=== PATIENT | male | born 1960 | race Caucasian/White ===

== ENCOUNTER 2024-12-31 12:01 | Inpatient (IN) | payer MEDICARE, MEDICAID ==
[~2024-12-31] VITALS: Ht 165.1 cm; Wt 65.3 kg
[2024-12-31] MEDS: SODIUM CHLORIDE 0.9% (SEPSIS BOLUS) IV ONE (12:22)
[2024-12-31] MEDS: PIPERACILLIN/TAZO 3.375G/50ML 50 ML IV ONE (12:28)
[2024-12-31] MEDS: VANCOMYCIN 1G PREMIX 200 ML IV ONE (12:32)
[2024-12-31 12:40] LABS: HEMATOCRIT. 26.8 % (42.0-52.0); HEMOGLOBIN. 8.5 g/dL (14.0-18.0); MEAN CORPUSCULAR HEMOGLOBIN 30.6 pg (28.0-32.0); MEAN CORPUSCULAR HGB CONC 31.9 g/dL (31.0-37.0); PLATELET 186 x1000/uL (130-400); RED BLOOD CELL COUNT 2.79 mill/uL (4.7-6.1); RED CELL DISTRIBUTION WIDTH 16.6 % (11.6-14.6); WHITE BLOOD COUNT 16.8 x1000/uL (4.5-11.0)
[2024-12-31 12:41] LABS: DIFFERENTIAL COMMENT 1
[2024-12-31 12:43] LABS: INR 1.4; PROTHROMBIN TIME 15.1 sec (9.6-11.0)
[2024-12-31 12:48] LABS: CHLORIDE 113 mEq/L (98-107); POTASSIUM 3.9 mEq/L (3.5-5.1); SODIUM 137 mEq/L (136-145)
[2024-12-31 12:49] LABS: CALCIUM 8.3 mg/dL (8.7-10.4); CARBON DIOXIDE 12 mEq/L (21-32)
[2024-12-31 12:54] LABS: CREATININE 2.4 mg/dL (0.6-1.3); GLUCOSE 65 mg/dL (70-105); TROPONIN I HIGH SENSITIVITY 16 ng/L (3.0-53); UREA NITROGEN BLOOD 44 mg/dL (9-23)
[2024-12-31 12:56] LABS: ALANINE AMINOTRANSFERASE 23 IU/L (10-49); ALBUMIN 3.2 g/dL (3.2-4.8); ASPARTATE AMINOTRANSFERASE 21 IU/L (<34); BILIRUBIN DIRECT 0.2 mg/dL (<=3.0); BILIRUBIN TOTAL 0.3 mg/dL (0.1-1.0)
[2024-12-31 12:57] LABS: PROTEIN TOTAL 6.2 g/dL (6.0-8.3)
[2024-12-31] MEDS ORDERED: NOREPINEPHRINE 8MG/250ML PMX 250 ML IV STA (13:32)
[2024-12-31 13:46] LABS: ANISOCYTOSIS 1+; PLATELET ESTIMATE NORMAL
[2024-12-31 13:48] LABS: TOXIC VACUOLATION FEW
[2024-12-31] MEDS: NOREPINEPHRINE 8MG/250ML PMX 250 ML IV NR (14:03)
[2024-12-31] MEDS: MIDODRINE HCL 5MG TABLET PO NR (17:30)
[2024-12-31] MEDS ORDERED: ACETAMINOPHEN 325MG TABLET PO PRN (17:30)
[2024-12-31] MEDS ORDERED: DEXT 5%/0.2% NACL 1,000 ML IV SCH (17:30)
[2024-12-31] MEDS ORDERED: ONDANSETRON HCL 4MG/2ML INJ IV PRN (17:30)
[2024-12-31] MEDS ORDERED: SODIUM BICARBONATE IV SCH (18:00)
[2024-12-31] MEDS ORDERED: NACL IV SCH (18:00)
[2024-12-31] MEDS ORDERED: DEXT IV SCH (18:00)
[2024-12-31] MEDS: SODIUM BICARBONATE 150 MEQ in DEXT 5%/0.45% NACL 1000ML 850 ML IV SCH (20:00)
[2024-12-31] MEDS: BLOOD SUGAR DIAGNOSTIC STRIP TEST SCH (22:43)
[2024-12-31] MEDS: PIPERACILLIN/TAZO 3.375G/50ML 50 ML IV SCH (23:05)
[2025-01-01] MEDS: MIDODRINE HCL 5MG TABLET PO SCH (09:41)
[2025-01-01 10:52] VITALS: BP 124/57; PULSE 67; RESP 18; TEMP 36.4; O2SAT 100
[2025-01-01] MEDS ORDERED: TAMS-11 PO (10:56)
[2025-01-01] MEDS ORDERED: TACR1CAP2 MT (10:56)
[2025-01-01] MEDS ORDERED: NIFE-32 PO (11:03)
[2025-01-01] MEDS ORDERED: FINA5TAB11 PO (11:03)
[2025-01-01] MEDS ORDERED: CLON0.2T PO (11:03)
[2025-01-01] MEDS ORDERED: SODI325T PO (11:03)
[2025-01-01] MEDS ORDERED: LOSA100T33 PO (11:03)
[2025-01-01] MEDS ORDERED: MULT-1279 PO (11:03)
[2025-01-01] MEDS ORDERED: CARV6.2548 PO (11:03)
[2025-01-01 11:04] VITALS: BP 124/57; PULSE 67; RESP 18; TEMP 36.4
[2025-01-01] MEDS ORDERED: VANCOMYCIN 1G PREMIX 200 ML IV SCH (12:00)
[2025-01-01] MEDS ORDERED: DEXTROSE 50% WATER 50ML SYRINGE IV PRN (12:30)
[2025-01-01] MEDS ORDERED: FINASTERIDE 5MG TABLET PO SCH (12:30)
[2025-01-01] MEDS: FINASTERIDE 5MG TABLET PO SCH (13:40)
[2025-01-01] MEDS: TACROLIMUS 1MG CAPSULE PO SCH (13:40)
[2025-01-01] MEDS: INSULIN LISPRO 100 UNITS/ML SUBCUT SCH (13:42)
[2025-01-01 15:56] LABS: HEMATOCRIT. 32.8 % (42.0-52.0); HEMOGLOBIN. 10.4 g/dL (14.0-18.0); MEAN CORPUSCULAR HEMOGLOBIN 29.4 pg (28.0-32.0); MEAN CORPUSCULAR HGB CONC 31.6 g/dL (31.0-37.0); MEAN CORPUSCULAR VOLUME 93.2 fL (80.0-94.0); MEAN PLATELET VOLUME 10.3 fl (7.4-10.4); PLATELET 187 x1000/uL (130-400); RED BLOOD CELL COUNT 3.52 mill/uL (4.7-6.1); RED CELL DISTRIBUTION WIDTH 17.1 % (11.6-14.6)
[2025-01-01 16:00] VITALS: BP 143/74; PULSE 83; RESP 19; TEMP 36.6; O2SAT 100
[2025-01-01 16:03] LABS: DIFFERENTIAL COMMENT 1
[2025-01-01 16:04] LABS: POTASSIUM 3.7 mEq/L (3.5-5.1)
[2025-01-01 16:06] LABS: CALCIUM 8.3 mg/dL (8.7-10.4)
[2025-01-01 16:13] LABS: CLARITY URINE CLEAR (CLEAR); COLOR URINE YELLOW (YELLOW); GLUCOSE URINE 2+ (NEGATIVE); KETONES URINE NEGATIVE (NEGATIVE); LEUKOCYTE ESTERASE URINE 1+ (NEGATIVE); NITRITE URINE NEGATIVE (NEGATIVE); OCCULT BLOOD URINE 2+ (NEGATIVE); PH URINE 5.5 (4.5-8.0); PROTEIN URINE 1+ (NEGATIVE); SPECIFIC GRAVITY URINE 1.009 (1.005-1.030); UROBILINOGEN URINE 0.2 E.U./dL (0.2-1.0)
[2025-01-01 16:25] LABS: BACTERIA URINE 1+; SQUAMOUS EPITHELIAL CELL URINE 1+ /lpf (RARE/1+); YEAST URINE NONE SEEN
[2025-01-01 16:38] LABS: ANISOCYTOSIS 1+; PLATELET ESTIMATE NORMAL
[2025-01-01] MEDS: VANCOMYCIN 750MG/150ML (BAXTER) IV NR (17:15)
[2025-01-01 20:00] VITALS: BP 143/74; PULSE 87; RESP 18; TEMP 36.7; O2SAT 99
[2025-01-01] MEDS: TAMSULOSIN HCL 0.4MG SR CAPSULE PO SCH (22:32)
[2025-01-01] MEDS: CLONIDINE 0.2MG TABLET PO SCH (22:33)
[2025-01-01] MEDS: CARVEDILOL 6.25 MG TABLET PO SCH (22:34)
[2025-01-02] VITALS: BP 138/70; PULSE 74; RESP 18; TEMP 36.5; O2SAT 98
[2025-01-02 04:00] VITALS: BP 134/70; PULSE 70; RESP 19; TEMP 36.6; O2SAT 98
[2025-01-02 07:48] LABS: POTASSIUM 3.7 mEq/L (3.5-5.1)
[2025-01-02 07:49] LABS: CALCIUM 7.9 mg/dL (8.7-10.4)
[2025-01-02 07:54] LABS: CREATININE 1.8 mg/dL (0.6-1.3)
[2025-01-02 07:58] LABS: HEMATOCRIT. 30.1 % (42.0-52.0); HEMOGLOBIN. 9.7 g/dL (14.0-18.0); MEAN CORPUSCULAR HEMOGLOBIN 29.7 pg (28.0-32.0); MEAN CORPUSCULAR HGB CONC 32.1 g/dL (31.0-37.0); MEAN CORPUSCULAR VOLUME 92.4 fL (80.0-94.0); MEAN PLATELET VOLUME 10.9 fl (7.4-10.4); PLATELET 158 x1000/uL (130-400); RED BLOOD CELL COUNT 3.26 mill/uL (4.7-6.1); RED CELL DISTRIBUTION WIDTH 16.5 % (11.6-14.6); WHITE BLOOD COUNT 15.5 x1000/uL (4.5-11.0)
[2025-01-02 08:00] VITALS: BP 169/80; PULSE 76; RESP 18; TEMP 36.6; O2SAT 98
[2025-01-02] MEDS: NIFEDIPINE XL 60MG TAB PO SCH (08:42)
[2025-01-02] MEDS: LOSARTAN 100 MG TABLET PO SCH (08:42)
[2025-01-02 08:44] LABS: DIFFERENTIAL COMMENT 1
[2025-01-02 12:00] VITALS: BP 125/62; PULSE 70; RESP 18; TEMP 36.7; O2SAT 96
[2025-01-02] MEDS: CEFTRIAXONE 2GM/50ML 50 ML IV SCH (12:05)
[2025-01-02 16:00] VITALS: BP 114/60; PULSE 73; RESP 18; TEMP 36.4; O2SAT 95
[2025-01-02 20:00] VITALS: BP 116/65; PULSE 80; RESP 20; TEMP 36.9; O2SAT 99
[2025-01-03] VITALS: BP 129/71; PULSE 78; RESP 20; TEMP 36.6; O2SAT 99
[2025-01-03 04:00] VITALS: BP 106/57; PULSE 68; RESP 18; TEMP 36.3; O2SAT 98
[2025-01-03 08:00] VITALS: BP 114/60; PULSE 80; RESP 18; TEMP 37; O2SAT 96
[2025-01-03 08:42] LABS: CALCIUM 7.7 mg/dL (8.7-10.4)
[2025-01-03 08:47] LABS: CREATININE 1.8 mg/dL (0.6-1.3)
[2025-01-03 09:13] LABS: HEMATOCRIT. 28.5 % (42.0-52.0); MEAN CORPUSCULAR HEMOGLOBIN 29.4 pg (28.0-32.0); MEAN CORPUSCULAR HGB CONC 31.7 g/dL (31.0-37.0); MEAN CORPUSCULAR VOLUME 92.8 fL (80.0-94.0); MEAN PLATELET VOLUME 10.7 fl (7.4-10.4); PLATELET 155 x1000/uL (130-400); RED BLOOD CELL COUNT 3.07 mill/uL (4.7-6.1); RED CELL DISTRIBUTION WIDTH 16.5 % (11.6-14.6); WHITE BLOOD COUNT 6.2 x1000/uL (4.5-11.0)
[2025-01-03 10:00] LABS: DIFFERENTIAL COMMENT 1
[2025-01-03 12:00] VITALS: BP 117/61; PULSE 86; RESP 18; TEMP 36.7; O2SAT 98
[2025-01-03] MEDS ORDERED: LEVO750T68 MT (13:11)
[2025-01-03 13:34] VITALS: BP 117/61; PULSE 86; TEMP 98; O2SAT 99
[2025-01-03 16:00] VITALS: BP 117/61; PULSE 77; RESP 19; TEMP 36.5; O2SAT 98
[2025-01-03 17:19] LABS: PLATELET ESTIMATE NORMAL
[2025-01-03 18:49] LABS: PLATELET ESTIMATE NORMAL
== END 2025-01-03 16:25 | disposition home or self-care (01) | DRG 871 ==
LOC: EDBD 12:01 → ER 12:01 → 6WST 14:25 → EDBEDREQSVC 01-01 10:11
PROVIDERS: ADMIT Internal Medicine; ATTEND Internal Medicine
PROC: 06HY33Z Insertion of Infusion Device into Lower Vein, Percutaneous Approach (ICD-10-PCS; principal; 2024-12-31)
PROC: B54BZZA Ultrasonography of Right Lower Extremity Veins, Guidance (ICD-10-PCS; 2024-12-31)
DX: A41.51 Sepsis due to Escherichia coli [E. coli] (principal); R65.21 Severe sepsis with septic shock; Z94.0 Kidney transplant status; N39.0 Urinary tract infection, site not specified; N17.9 Acute kidney failure, unspecified; D64.9 Anemia, unspecified; N40.0 Benign prostatic hyperplasia without lower urinary tract symptoms; N18.9 Chronic kidney disease, unspecified; I12.9 Hypertensive chronic kidney disease with stage 1 through stage 4 chronic kidney disease, or unspecified chronic kidney disease; E11.22 Type 2 diabetes mellitus with diabetic chronic kidney disease; Z79.899 Other long term (current) drug therapy
CPT/HCPCS: 36415; 36556; 71045; 80048; 80076; 80202; 81003; 82962; 83036; 83605; 84145; 84484; 85025; 87077; 87186; 93005; 99291; A4606; J0696; J1815; J2543; J3370; J3490; J7030; J7507

== ENCOUNTER 2025-09-10 08:56 | Inpatient (IN) | payer MEDICARE, MEDICAID ==
[~2025-09-10] VITALS: Ht 157.5 cm; Wt 59.4 kg
[~2025-09-10 08:56] MED LIST: CARV6.2548 PO; CLON0.2T PO; FINA5TAB11 PO; LEVO750T68 MT; LOSA100T33 PO; MULT-1279 PO; NIFE-32 PO; SODI325T PO; TACR1CAP2 MT; TAMS-54 PO
[2025-09-10 09:10] VITALS: O2SAT 99
[2025-09-10] MEDS: ONDANSETRON 4MG ODT PO ONE (10:01)
[2025-09-10] MEDS: ACETAMINOPHEN 325MG TABLET PO ONE (10:01)
[2025-09-10] MEDS: LACTATED RINGERS 1,000 ML IV SCH (10:01)
[2025-09-10 10:20] LABS: HEMATOCRIT. 32.4 % (42.0-52.0); HEMOGLOBIN. 10.2 g/dL (14.0-18.0); MEAN PLATELET VOLUME 9.4 fl (7.4-10.4); PLATELET 252 x1000/uL (130-400); RED BLOOD CELL COUNT 3.48 mill/uL (4.7-6.1); RED CELL DISTRIBUTION WIDTH 17.1 % (11.6-14.6)
[2025-09-10 10:50] LABS: TROPONIN I HIGH SENSITIVITY 30 ng/L (3.0-53)
[2025-09-10 10:51] LABS: UREA NITROGEN BLOOD 32 mg/dL (9-23)
[2025-09-10 10:53] LABS: ASPARTATE AMINOTRANSFERASE 14 IU/L (<34); BILIRUBIN DIRECT 0.1 mg/dL (<=3.0); BILIRUBIN TOTAL 0.3 mg/dL (0.1-1.0); PROTEIN TOTAL 7.2 g/dL (6.0-8.3)
[2025-09-10 10:57] LABS: CREATININE 3.0 mg/dL (0.6-1.3)
[2025-09-10 11:26] LABS: BAND% 2.0 % (1.0-6.0); LYMPHOCYTES % MANUAL 2.0 % (20.0-50.0); MONOCYTES % MANUAL 5.0 % (2.0-8.0); NEUTROPHILS % MANUAL 91.0 % (45.0-75.0); NUCLEATED RED BLOOD CELLS 1 /100 WBC; PLATELET ESTIMATE NORMAL
[2025-09-10] MEDS ORDERED: ACETAMINOPHEN 325MG TABLET PO PRN (12:45)
[2025-09-10] MEDS ORDERED: DOCUSATE SODIUM 100MG CAPSULE PO PRN (12:45)
[2025-09-10] MEDS ORDERED: CLONIDINE 0.1MG TABLET PO PRN (12:45)
[2025-09-10] MEDS ORDERED: GUAIFENESIN 200MG/10ML SUGAR FREE UDC PO PRN (12:45)
[2025-09-10] MEDS ORDERED: ONDANSETRON HCL 4MG/2ML INJ IV PRN (12:45)
[2025-09-10] MEDS ORDERED: IPRATROPIUM/ALBUTEROL 0.5-3(2.5)MG/3ML NEB HHN PRN (12:45)
[2025-09-10] MEDS: INSULIN LISPRO 100 UNITS/ML SUBCUT SCH (12:50)
[2025-09-10] MEDS ORDERED: FINASTERIDE 5MG TABLET PO SCH (13:00)
[2025-09-10] MEDS ORDERED: IOHEXOL-300 100 ML BOTTLE ONE (13:26)
[2025-09-10 13:36] LABS: PHOSPHORUS 3.9 mg/dL (2.5-4.9)
[2025-09-10] MEDS: DEXTROSE 50% WATER 50ML SYRINGE IV PRN (13:36)
[2025-09-10 16:00] VITALS: BP 112/68; PULSE 102; RESP 17; TEMP 36.7; O2SAT 97
[2025-09-10] MEDS: SODIUM BICARBONATE 650MG TABLET PO SCH (17:00)
[2025-09-10] MEDS: MAGNESIUM 4 G PREMIX 100 ML IV SCH (17:30)
[2025-09-10] MEDS: TACROLIMUS 1MG CAPSULE PO SCH (17:31)
[2025-09-10] MEDS: ENOXAPARIN 30MG/0.3ML SYR SUBCUT SCH (17:31)
[2025-09-10] MEDS: FAMOTIDINE 20MG/2ML VIAL IV SCH (17:32)
[2025-09-10] MEDS: SODIUM CHLORIDE 0.45% 1,000 ML IV SCH (17:40)
[2025-09-10] MEDS: BLOOD SUGAR DIAGNOSTIC STRIP TEST SCH (17:43)
[2025-09-10 18:09] VITALS: BP 112/68; PULSE 102; RESP 18; TEMP 36.696
[2025-09-10] MEDS ORDERED: FURO20TA4 PO (18:27)
[2025-09-10] MEDS ORDERED: MYCO180T3 MT (18:28)
[2025-09-10] MEDS ORDERED: TAMS-54 PO (18:29)
[2025-09-10 18:31] LABS: CLARITY URINE CLEAR (CLEAR); COLOR URINE YELLOW (YELLOW); GLUCOSE URINE NEGATIVE (NEGATIVE); KETONES URINE NEGATIVE (NEGATIVE); LEUKOCYTE ESTERASE URINE NEGATIVE (NEGATIVE); NITRITE URINE NEGATIVE (NEGATIVE); OCCULT BLOOD URINE TRACE (NEGATIVE); PH URINE 5.0 (4.5-8.0); PROTEIN URINE 1+ (NEGATIVE); SPECIFIC GRAVITY URINE 1.017 (1.005-1.030); UROBILINOGEN URINE 0.2 E.U./dL (0.2-1.0)
[2025-09-10] MEDS ORDERED: CLON1PAT12 TD (18:32)
[2025-09-10] MEDS ORDERED: SODI650T MT (18:32)
[2025-09-10] MEDS ORDERED: DOLU1TAB2 PO (18:33)
[2025-09-10] MEDS ORDERED: LOSA50TA41 PO (18:34)
[2025-09-10] MEDS ORDERED: NIFE20CA8 PO (18:35)
[2025-09-10] MEDS ORDERED: TACR30OI5 TP (18:36)
[2025-09-10 18:50] LABS: *AMPHETAMINES SCREEN URINE NEGATIVE (NEGATIVE); *BARBITURATES SCREEN URINE NEGATIVE (NEGATIVE); *BENZODIAZEPINES SCREEN URINE NEGATIVE (NEGATIVE); *COCAINE SCREEN URINE NEGATIVE (NEGATIVE); CANNABINOID URINE SCREEN NEGATIVE (NEGATIVE); METHADONE URINE SCREEN NEGATIVE (NEGATIVE); OPIATES URINE SCREEN NEGATIVE (NEGATIVE); PHENCYCLIDINE URINE SCREEN NEGATIVE (NEGATIVE)
[2025-09-10 18:51] LABS: BACTERIA URINE TRACE; ECSTASY MDMA SCREEN URINE NEGATIVE (NEGATIVE); RBC URINE NONE SEEN /hpf (0-2); SQUAMOUS EPITHELIAL CELL URINE RARE /lpf (RARE/1+); WBC URINE 0-2 /hpf (0-2)
[2025-09-10] MEDS: INFLUENZA VACCINE 05/PF 0.5 ML SYRINGE IM ONE (19:30)
[2025-09-10 20:00] VITALS: BP 134/73; PULSE 67; RESP 18; TEMP 36.7; O2SAT 100
[2025-09-10] MEDS: TAMSULOSIN HCL 0.4MG SR CAPSULE PO SCH (21:41)
[2025-09-10] MEDS: ACETAMINOPHEN 325MG TABLET PO PRN (23:24)
[2025-09-11] VITALS: BP 158/88; PULSE 103; RESP 18; TEMP 36.7; O2SAT 99
[2025-09-11 07:59] LABS: BASOPHILS % 0.2 % (0.0-2.0); EOSINOPHILS % 0.4 % (0.0-5.0); HEMATOCRIT. 30.4 % (42.0-52.0); HEMOGLOBIN. 9.6 g/dL (14.0-18.0); LYMPHOCYTES % 9.8 % (20.0-50.0); MEAN PLATELET VOLUME 10.0 fl (7.4-10.4); MONOCYTES % 8.2 % (2.0-8.0); NEUTROPHILS % 81.4 % (40.0-76.0); PLATELET 202 x1000/uL (130-400); RED BLOOD CELL COUNT 3.31 mill/uL (4.7-6.1); RED CELL DISTRIBUTION WIDTH 16.4 % (11.6-14.6)
[2025-09-11 08:00] VITALS: BP 173/92; PULSE 100; RESP 20; TEMP 36.6; O2SAT 99
[2025-09-11 08:20] LABS: CREATININE 2.7 mg/dL (0.6-1.3)
[2025-09-11 08:21] LABS: LDL CHOLESTEROL 33 mg/dL (5-100); TRIGLYCERIDE 103 mg/dL (0-150); UREA NITROGEN BLOOD 32 mg/dL (9-23)
[2025-09-11 08:22] LABS: ASPARTATE AMINOTRANSFERASE 13 IU/L (<34)
[2025-09-11 08:23] LABS: BILIRUBIN DIRECT 0.1 mg/dL (<=3.0); BILIRUBIN TOTAL 0.2 mg/dL (0.1-1.0); PHOSPHORUS 3.4 mg/dL (2.5-4.9); PROTEIN TOTAL 6.7 g/dL (6.0-8.3)
[2025-09-11 08:24] LABS: T4 FREE 0.80 ng/dL (0.89-1.76)
[2025-09-11] MEDS: SODIUM BICARBONATE 8.4% 50MEQ/50ML SYR IV NR (09:15)
[2025-09-11] MEDS: FINASTERIDE 5MG TABLET PO SCH (09:32)
[2025-09-11] MEDS: NIFEDIPINE XL 30MG TAB PO SCH (09:32)
[2025-09-11 11:58] LABS: BG BASE EXCESS -12.7 mmol/L (-2.0-3.0); BG CARBOXYHEMOGLOBIN 0.1 % (0.5-1.5); BG DEOXYHEMOGLOBIN 1.8 % (0.0-5.0); BG FRACTION INSPIRED OXYGEN 21; BG HCO3 ACT 11.9 mmol/L (21.0-28.0); BG METHEMOGLOBIN 0.3 % (0.5-1.5); BG OXYGEN SATURATION 98.2 % (94.0-98.0); BG OXYHEMOGLOBIN 97.8 % (94.0-98.0); BG PCO2 23.7 mmHg (35.0-48.0); BG PH 7.318 (7.350-7.450); BG PO2 133.9 mmHg (83.0-108.0); BG SAMPLE SITE LEFT BRACHIAL; BG TOTAL HEMOGLOBIN 9.9 g/dL (13.5-17.5); BG VENT MODE ROOM AIR
[2025-09-11 12:00] VITALS: BP 179/74; PULSE 98; RESP 19; TEMP 36.5; O2SAT 99
[2025-09-11] MEDS ORDERED: TAMSULOSIN HCL 0.4MG SR CAPSULE PO SCH (12:00)
[2025-09-11] MEDS: MYCOPHENOLATE SODIUM 180 MG TABLET.DR PO SCH (13:23)
[2025-09-11] MEDS: NIFEDIPINE XL 30MG TAB PO NR (13:25)
[2025-09-11] MEDS: CARVEDILOL 6.25 MG TABLET PO SCH (13:25)
[2025-09-11 16:00] VITALS: BP 146/71; PULSE 74; RESP 17; TEMP 36.5; O2SAT 98
[2025-09-11] MEDS: SODIUM BICARBONATE 150 MEQ in DEXTROSE 5% WATER 850 ML IV SCH (18:21)
[2025-09-11 20:00] VITALS: BP 127/61; PULSE 86; RESP 18; TEMP 36.4; O2SAT 95
[2025-09-11] MEDS: SODIUM BICARBONATE 650MG TABLET PO SCH (21:34)
[2025-09-11] MEDS: INSULIN GLARGINE 100 UNITS/ML SUBCUT SCH (23:31)
[2025-09-12] VITALS: BP 129/78; PULSE 73; RESP 19; TEMP 36.6; O2SAT 95
[2025-09-12 04:00] VITALS: BP 128/75; PULSE 80; RESP 18; TEMP 36.4; O2SAT 96
[2025-09-12 06:58] LABS: CREATININE 2.6 mg/dL (0.6-1.3)
[2025-09-12 07:00] LABS: UREA NITROGEN BLOOD 28 mg/dL (9-23)
[2025-09-12 07:02] LABS: PHOSPHORUS 2.6 mg/dL (2.5-4.9)
[2025-09-12 07:14] LABS: BASOPHILS % 0.4 % (0.0-2.0); EOSINOPHILS % 0.8 % (0.0-5.0); HEMATOCRIT. 28.6 % (42.0-52.0); HEMOGLOBIN. 9.4 g/dL (14.0-18.0); LYMPHOCYTES % 12.4 % (20.0-50.0); MEAN PLATELET VOLUME 10.2 fl (7.4-10.4); MONOCYTES % 7.9 % (2.0-8.0); NEUTROPHILS % 78.5 % (40.0-76.0); PLATELET 187 x1000/uL (130-400); RED BLOOD CELL COUNT 3.15 mill/uL (4.7-6.1); RED CELL DISTRIBUTION WIDTH 16.0 % (11.6-14.6)
[2025-09-12 08:00] VITALS: BP 102/57; PULSE 72; RESP 18; TEMP 36.3; O2SAT 98
[2025-09-12] MEDS: MAGNESIUM 2 G PREMIX 50 ML IV NR (08:13)
[2025-09-12] MEDS: NIFEDIPINE XL 60MG TAB PO SCH (09:00)
[2025-09-12 12:00] VITALS: BP 124/69; PULSE 82; RESP 18; TEMP 36.4; O2SAT 98
[2025-09-12 16:00] VITALS: BP 116/65; PULSE 80; RESP 18; TEMP 36.7; O2SAT 96
[2025-09-12 17:17] VITALS: BP 132/72; PULSE 89; RESP 18; TEMP 98
== END 2025-09-12 18:40 | disposition home health service (06) | DRG 391 ==
LOC: ER 08:56 → 6WST 10:38 → EDBEDREQ 10:41 → EDBEDREQTM 10:41
PROVIDERS: ADMIT Hospitalist; ATTEND Hospitalist
DX: K52.9 Noninfective gastroenteritis and colitis, unspecified (principal); K65.9 Peritonitis, unspecified; N17.0 Acute kidney failure with tubular necrosis; R65.10 Systemic inflammatory response syndrome (SIRS) of non-infectious origin without acute organ dysfunction; T86.19 Other complication of kidney transplant; E87.20 Acidosis, unspecified; N13.30 Unspecified hydronephrosis; E83.42 Hypomagnesemia; E11.22 Type 2 diabetes mellitus with diabetic chronic kidney disease; I12.9 Hypertensive chronic kidney disease with stage 1 through stage 4 chronic kidney disease, or unspecified chronic kidney disease; Y83.0 Surgical operation with transplant of whole organ as the cause of abnormal reaction of the patient, or of later complication, without mention of misadventure at the time of the procedure; E86.0 Dehydration; D64.9 Anemia, unspecified; E78.5 Hyperlipidemia, unspecified; N40.0 Benign prostatic hyperplasia without lower urinary tract symptoms; N18.30 Chronic kidney disease, stage 3 unspecified; E11.649 Type 2 diabetes mellitus with hypoglycemia without coma; Z79.899 Other long term (current) drug therapy; Z82.49 Family history of ischemic heart disease and other diseases of the circulatory system; Z79.4 Long term (current) use of insulin; Y92.89 Other specified places as the place of occurrence of the external cause
CPT/HCPCS: 36415; 36600; 71045; 74177; 80048; 80061; 80076; 80305; 81003; 82375; 82550; 82728; 82805; 82962; 83036; 83540; 83550; 83605; 83735; 83880; 83930; 84100; 84145; 84439; 84443; 84484; 85025; 86850; 86900; 87496; 90686; 93005; 93970; 97162; 97166; 99291; J1308; J1650; J1815; J3475; J3490; J7070; J7507; J7517; Q0162; Q9967